=== PATIENT | female | born 1955 | race African-American/Black ===

== ENCOUNTER → 2019-11-17 | Outpatient (CLI) | payer BC ==
[~2019-11-17] MED LIST: BLOOD PRESSURE; HCTZ; LEVAQUIN 5500 MG/TAB PO; LORTAB 5/500 501 TAB PO; LOTREL 5 MG-101 CAP PO; [UNRECOGNIZED DRUG - REMARK]
== END ==
LOC: COL.RAD 07:50
DX: R14.0 Abdominal distension (gaseous) (principal)
CPT/HCPCS: A9541

== ENCOUNTER 2021-12-06 15:51 | Observation (INO) | payer MEDICARE ==
[~2021-12-06] VITALS: Ht 157.5 cm; Wt 92.5 kg
[~2021-12-06 15:51] MED LIST changes: -HCTZ; +HYDRODIURIL50 MG PO
[2021-12-06 17:20] LABS: HEMATOCRIT 45.2 % (37.0-47.0); HEMOGLOBIN 15.1 g/dl (12.5-16.0); MEAN CELL VOLUME 89 fl (80.0-100.0); MEAN CORPUSCULAR HEMOGLOBIN 30 pg (27-31); MEAN CORPUSCULAR HGB CONC 33 g/dl (33.0-37.0); MEAN PLATELET VOLUME 11.3 fl (7.4-10.4); PLATELET COUNT 209 K/mm3 (130-400); RED BLOOD COUNT 5.11 M/mm3 (4.10-5.30); REDCELL DISTRIBUTION WIDTH-CV 14.3 % (11.5-14.5)
[2021-12-06 17:41] LABS: ALBUMIN 3.8 gm/dL (3.4-4.8); BILIRUBIN,TOTAL 0.3 mg/dL (0.2-1.2); C-REACTIVE PROTEIN 0.9 mg/dL (0.00-0.50); CALCIUM 9.8 mg/dL (8.4-10.2); CREATININE, serum 0.78 mg/dL (0.57-1.11); POTASSIUM 3.4 mmol/L (3.5-4.5); TOTAL PROTEIN 7.7 gm/dL (6.2-8.1)
[2021-12-06 17:47] LABS: TROPONIN-I 0.012 ng/mL (0.00-0.033)
[2021-12-06 18:14] LABS: BAND 1 % (0-10); EOSINOPHIL 3 % (0-4); LYMPHOCYTE 43 % (20.0-51.0); NEUTROPHILS 50 % (42.0-75.2); PLATELET ESTIMATE NORMAL (NORMAL)
--- NOTE | 2021-12-06 20:42 | NUR ---
PT RECEVIED FROM ED. ADMITTED TO ROOM.
[2021-12-06 20:43] VITALS: BP 139/62; PULSE 72; TEMP 98.7
[2021-12-06] MEDS ORDERED: KLOR-CON 1010 MEQ PO (20:56)
[2021-12-06] MEDS ORDERED: TOPROL XL 50MG50 MG PO (20:58)
[2021-12-06] MEDS ORDERED: PROTONIX20 MG PO (21:00)
[2021-12-06] MEDS ORDERED: CRESTOR 10MG10 MG PO (21:01)
--- NOTE | 2021-12-06 22:32 | NUR ---
Exp wheezes before and after tx, heard loudest in the upper throat area and unchanged by tx. Tx given via mouthpiece, tolerated well.
[2021-12-07 00:13] VITALS: BP 145/63; PULSE 79; TEMP 98.4
--- NOTE | 2021-12-07 01:46 | NUR ---
Pt alert and oriented, follows commands. Pt admitted to room, oriented pt and family member. Admission intake and admission assessment performed. Med rx reviewed and confirmed. Allergies confirmed. COVID and infectious disease assessments completed. Nourishment provided. VS stable. On room air. Afebrile. Pt did have an emesis episode this evening around 2200. Pt stating "I felt nauseas, it wasn't from me coughing. I got up to go to what I thought was the bathroom and threw up". Pt had a large amount of emesis in the sink outside of the bathroom. Sink was cleaned and santized. Pt reported "feeling better" after vomiting. Prn zofran was administered per orders. No other vomiting has occurred. Provider aware. Pt tolerated PO medications after emesis episode, with no nausea reported. Pt has expiratory/inspiratory wheezing. Pt's RR increases when OOB, appears SOB with ambulation. IV antibx administered per orders. Medications administered per orders and education provided. No significant skin issues noted. VS stable. On room air. Bed low and locked, call chapman within reach. Telemetry on. No new concerns at this time.
[2021-12-07 03:29] VITALS: BP 139/66; PULSE 74; TEMP 99.1
--- NOTE | 2021-12-07 04:50 | NUR ---
No adverse events overnight. No more emesis episodes overnight. Pt denies nausea this morning. Pt reports some pain with cough, but states it has improved. Pt reported neck pain this morning. Pt was pulled up in bed and repositioned and reported relief. Up to void overnight. VS stable. On room air. Afebrile. Temp max 99.1. Pt continues to have a dry cough. Pt states she will occasionally have sputum, but has not been able to cough any up for a sputum culture. IV antibx administered per orders. Telemetry on. Bed low and locked, call chapman within reach. No new concerns at this time.
[2021-12-07 06:07] LABS: HEMATOCRIT 45.4 % (37.0-47.0); HEMOGLOBIN 15.5 g/dl (12.5-16.0); MEAN CELL VOLUME 87 fl (80.0-100.0); MEAN CORPUSCULAR HEMOGLOBIN 30 pg (27-31); MEAN CORPUSCULAR HGB CONC 34 g/dl (33.0-37.0); MEAN PLATELET VOLUME 11.7 fl (7.4-10.4); PLATELET COUNT 218 K/mm3 (130-400); RED BLOOD COUNT 5.23 M/mm3 (4.10-5.30); REDCELL DISTRIBUTION WIDTH-CV 14.3 % (11.5-14.5)
[2021-12-07 06:26] LABS: CALCIUM 9.9 mg/dL (8.4-10.2); CREATININE, serum 0.89 mg/dL (0.57-1.11); POTASSIUM 3.6 mmol/L (3.5-4.5)
[2021-12-07 06:59] LABS: BAND 4 % (0-10); NEUTROPHILS 69 % (42.0-75.2); PLATELET ESTIMATE NORMAL (NORMAL)
[2021-12-07 07:01] LABS: LYMPHOCYTE 24 % (20.0-51.0)
[2021-12-07 07:24] VITALS: BP 141/64; PULSE 62; TEMP 99
--- NOTE | 2021-12-07 09:07 | NUR ---
PT RESTING IN BED. MORNING MEDICATIONS GIVEN. SHIFT ASSESSMENT COMPLETED. PT DENIES ANY PAIN OR NEEDS. CURRENTLY BREATHING ON ROOM AIR. DENIES ANY SOB WITH REST, REPORTS SOB WHEN AMBULATING OR COUGHING. WILL CONTINUE TO MONITOR.
--- NOTE | 2021-12-07 10:37 | NUR ---
SW met with patient to complete intake. Patient lives in [facility] with Grace Arenas [phone]. Patient does not utilize DME, is independent with ADL's and does not utilize home health services. PCP is Dr. Aponte and pharmacy is [facility]. Patient provides that her has been appointed as her DPOA/HC, and plans to return to her home upon DC. DC plan: home
[2021-12-07 11:22] VITALS: BP 144/62; PULSE 67; TEMP 97.7
[2021-12-07 15:56] VITALS: BP 134/69; PULSE 68; TEMP 98.7
[2021-12-07 20:45] VITALS: BP 144/63; PULSE 82; TEMP 97.7
[2021-12-08 00:46] VITALS: BP 123/53; PULSE 70; TEMP 97.7
--- NOTE | 2021-12-08 02:13 | NUR ---
PT REQUESTED I NOT WAKE HER IF SLEEPING, PT SLEEPING AT THIS TIME.
[2021-12-08 04:02] VITALS: BP 146/60; PULSE 63; TEMP 97.7
[2021-12-08 08:16] VITALS: BP 144/71; PULSE 73; TEMP 97.5
--- NOTE | 2021-12-08 09:50 | NUR ---
PT SITTING UP IN ROOM. MORNING MEDICATIONS GIVEN. SHIFT ASSESSMENT COMPLETED. PT REPORTS BREATHING FEELS IMPROVED. CURRENTLY ON ROOM AIR. SOME WHEEZING NOTED TO LOWER LOBES BILATERALLY. DENIES ANY PAIN OR NEEDS. UPDATED ON POC. WILL CONTINUE TO MONITOR.
[2021-12-08 11:34] VITALS: BP 140/57; PULSE 62; TEMP 97.6
--- NOTE | 2021-12-08 12:15 | NUR ---
[facility]: Restoration Situation: Machine Sole Leveler went by room on rounds Background: Pt was resting and content in chair Assessment: Pt has no needs right now. Recommendation: Machine Sole Leveler will follow up as needed
--- NOTE | 2021-12-08 13:48 | NUR ---
[facility] spoke with RN who advised patient has been independent in her room.
[2021-12-08 15:21] VITALS: BP 130/63; PULSE 59; TEMP 98
--- NOTE | 2021-12-08 19:00 | NUR ---
THE PATIENT IS LAYING IN BED AT THIS TIME. PT STATES THAT SHE HAD BEEN SITTING IN THE CHAIR FOR THE MAJORITY OF THE DAY. PT DENIES ANY NEEDS. NO OTHER CONCERNS AT THIS TIME.
--- NOTE | 2021-12-08 19:39 | NUR ---
TX GIVEN VIA MOUTHPIECE, TOLERATED WELL.
[2021-12-08 21:26] VITALS: BP 126/50; PULSE 69; TEMP 97.9
[2021-12-09 00:24] VITALS: BP 146/57; PULSE 71; TEMP 97.7
[2021-12-09 05:04] VITALS: BP 165/80; PULSE 50; TEMP 97.5
--- NOTE | 2021-12-09 05:59 | NUR ---
PT REQUESTED I NOT WAKE HER, PT SLEEPING AT THIS TIME.
--- NOTE | 2021-12-09 06:06 | NUR ---
PT HAD UNEVENTFUL NIGHT. PLANS TO D/C TODAY. NO CONCERNS.
[2021-12-09 07:47] VITALS: BP 155/63; PULSE 60; TEMP 97.8
[2021-12-09 08:00] VITALS: PULSE 65
--- NOTE | 2021-12-09 08:34 | NUR ---
Shift assessment completed. Scheduled medications given. VSS. Patient A&O. Dry cough noted. PRN tessalon perles given. Patient denies any pain, discomfort, SOA, or further needs at this time. Call light in reach.
[2021-12-09] MEDS ORDERED: PROVENTIL0.09 MG/A1 IH (09:39)
[2021-12-09] MEDS ORDERED: PREDNISONE10 MG PO (09:45)
[2021-12-09] MEDS ORDERED: CARAFATE 1GM1 G PO (09:46)
[2021-12-09] MEDS ORDERED: LEVAQUIN 750MG750 M1 PO (09:46)
[2021-12-09] MEDS ORDERED: TESSALON P100 MG/CAP PO (09:47)
[2021-12-09 11:50] VITALS: BP 152/71; PULSE 59; TEMP 97.9
--- NOTE | 2021-12-09 14:15 | NUR ---
Patient deemed fit for discharge. Discharge education/instructions given. All questions answered. IV DC'd, catheter intact, no signs of phlebitis. Patient denies any pain, discomfort, SOA, or further needs at this time. Patient escorted from building via wheelchair by [facility] Staff. transporting home.
== END 2021-12-09 14:00 | disposition home or self-care (01) ==
LOC: COL.ER 15:51 → MEDICAL 19:06
PROVIDERS: Nurse Practitioner; Student in an Organized Health Care Education/Training Program; ADMIT Internal Medicine
DX: R59.0 Localized enlarged lymph nodes (principal); E87.6 Hypokalemia; I10 Essential (primary) hypertension; E78.5 Hyperlipidemia, unspecified; K21.9 Gastro-esophageal reflux disease without esophagitis; K76.9 Liver disease, unspecified; Z79.899 Other long term (current) drug therapy
CPT/HCPCS: G0378; J1650; J1956; J2270; J2405; J2920; J2930; J7512

== ENCOUNTER → 2022-08-14 | Outpatient (CLI) | payer MEDICARE ==
[~2022-08-14] MED LIST changes: +CARAFATE 1GM1 G PO; +CRESTOR 10MG10 MG PO; +KLOR-CON 1010 MEQ PO; +LEVAQUIN 750MG750 M1 PO; +PREDNISONE10 MG PO; +PROTONIX20 MG PO; +PROVENTIL0.09 MG/A1 IH; +TESSALON P100 MG/CAP PO; +TOPROL XL 50MG50 MG PO
== END ==
LOC: COL.LAB 16:03
DX: J30.1 Allergic rhinitis due to pollen (principal)